=== PATIENT | female | born 1985 | race Caucasian/White ===

== ENCOUNTER 2023-04-28 18:16 | Emergency (ER) | payer OTHER, SELFPAY ==
--- NOTE | ~2023-04-28 | CT_ITS ---
EXAMINATION: CT abdomen pelvis wo IV con CLINICAL INFORMATION: Reason for Exam b/l flank pain rad abd. urinary frequency COMPARISON: No prior CT available for comparison. TECHNIQUE: Multidetector volumetric imaging was performed from the superior aspect of the liver through the pubic symphysis , noncontrast CT Sagittal and coronal reformatted images were obtained on the technologist's workstation. This CT examination was performed using dose optimization techniques as appropriate, variously including the following: *Automated exposure control *Adjustment of mA and/or kV according to patient size (this includes techniques or standardized protocols for targeted exams where dose is matched to indication/reason for exam; i.e. extremities or head) *Use of iterative reconstruction technique DLP: 624 mGy-cm FINDINGS: LOWER THORAX: Included lung bases are clear. HEPATOBILIARY: No focal hepatic lesions. No biliary ductal dilatation. GALLBLADDER: Gallbladder unremarkable. SPLEEN: Spleen is normal in size. PANCREAS: No focal mass or ductal dilatation. STOMACH AND GASTROINTESTINAL TRACT: Small sliding hiatal hernia, Stomach is grossly unremarkable. There is no bowel distention or thickening. No CT evidence of appendicitis. ADRENALS: No adrenal nodules. KIDNEYS/URETERS: There are bilateral multiple tiny 1 mm nonobstructing kidney stones. Approximately 3-4 stones on each side, No CT evidence of renal obstruction or hydronephrosis on either side. URINARY BLADDER: Partially decompressed. PELVIC VISCERA: There are bilateral tubal ligation devices in place. Otherwise unremarkable. PERITONEUM: No free air or fluid. LYMPH NODES: No lymphadenopathy. VASCULAR:Abdominal aorta normal in size, no aneurysm found. BONES, ABDOMINAL WALL AND SOFT TISSUES: Age-appropriate changes of the spine and skeletal system, no destructive osteolytic or osteosclerotic bone lesion found CT/CT abdomen pelvis wo IV con IMPRESSION: * No CT evidence of acute intra-abdominal process to explain patient's pain symptoms. * There are bilateral tiny 1 mm nonobstructing kidney stones, no CT evidence of renal obstruction or hydronephrosis. * Bilateral tubal ligation devices in place. * Small sliding hiatal hernia.
[2023-04-28 18:38] VITALS: BP 150/101; PULSE 104; RESP 16; TEMP 36.6; O2SAT 100; BMI 34.1
--- NOTE | 2023-04-28 18:39 | ED.ABDPAIN ---
HPI - Abdominal Pain General Chief Complaint: Abdominal Pain Stated Complaint: ?kidney stone Time Seen by Provider: 04/28/23 19:02 Source: patient Mode of arrival: ambulatory Limitations: no limitations History of Present Illness HPI narrative: Patient is a 37-year-old female presents emergency department for evaluation of flank pain. She risk reports 4 days ago with onset of bilateral flank pain. Today it is radiating to the right lower quadrant / suprapubic region. She has been experiencing urinary frequency and dysuria. Has associated nausea but no vomiting. Reports that this does feel consistent with prior episodes of kidney stones, she has not had problematic kidney stones in at least 11 years, in the past she has required lithotripsy and stenting. She denies fevers, chills, chest pain, shortness of breath, upper abdominal pain, constipation, diarrhea, headache media, melena, urinary retention, numbness or tingling of the extremities, weakness. Denies possibility of , currently finishing her menstrual cycle. Related Data Allergies Allergy/AdvReac Type Severity Reaction Status Date / Time No Known Allergies Allergy Verified 04/28/23 18:41 Review of Systems Review of Systems Yes all other systems are reviewed and are negative [facility] Past Medical History Attestation statement: The following information was validated with the patient. Source: old records reviewed Social History Social History Alcohol intake: current Smoked in Last 30 Days: No Use of substances other than those prescribed or required for medical reasons: No Advance Directives: No Physical Exam ED Vital Signs: Vital Signs - 24 hr 04/28/23 18:38 04/28/23 21:14 Temperature 97.8 F Pulse Rate 104 H 75 Respiratory Rate 16 17 Blood Pressure 150/101 H 111/64 Pulse Oximetry 100 97 Oxygen Delivery Method Room Air Room Air BMI result Body Mass Index 34.1 Appearance: Alert.?Oriented to person, place and time. No acute distress.?Normal affect. Eyes: Pupils equal, round and reactive to light.? ENT: Pharynx normal.?? Neck: Normal inspection.? Neck supple.?? CVS: Heart sounds normal. Normal heart rate and rhythm.? Pulses normal.?? Respiratory: No respiratory distress.? Lung sounds clear to auscultation bilaterally?? Abdomen: Soft With suprapubic tenderness. No rebound tenderness. No rigidity. No guarding. No distention. Bilateral CVA tenderness. Normoactive bowel sounds. Skin: Skin warm and dry.? Normal skin color.? ?? Extremities: No lower extremity edema.? Neuro: Moves all extremities spontaneously. Sensation intact bilaterally. Ambulates with normal steady gait. Course Course Course Narrative: RME: 37yo F w/PMHx renal stones c/o bilateral back/flank pain radiating to pelvic region, worse on R w/urinary frequency x 4 days. +nausea. denies fever, chills, vomiting +B/L CVAT, abdomen soft & nontender Labs, UA ordered Full HPI, ROS and PE to be performed by primary ED provider. Reevaluation(s) Reevaluation #1: CT revealing bilateral tiny 1 mm nonobstructing kidney stones no hydronephrosis, no evidence of appendicitis, no evidence of acute intra-abdominal process to explain symptoms. I reviewed these findings with patient, suspect that her pain may be secondary to her menstrual cycle, we reviewed alternative etiology, less likely PID, denies concerns for sexually transmitted infections, ovarian torsion. There is outpatient follow-up with primary care provider for persistent symptoms. Discussed worrisome signs and symptoms that would warrant re-evaluation in the emergency department. All questions answered. Stable for discharge. Time: 21:50 Medical Decision Making Medical Decision Making MDM Narrative: patient is a 37-year-old female with past medical history of with calculi presenting to emergency department for evaluation of flank pain radiating into the abdomen and nausea as per HPI. At the time my examination she is overall well-appearing, nontoxic, afebrile. She is tolerating oral intake prior to arrival by her account. She has bilateral CVA tenderness upon examination, suprapubic tenderness upon exam. Abdominal examination reveals no rigidity or guarding, no rebound tenderness. Will obtain CBC to evaluate for leukocytosis/ anemia, CMP and lipase to evaluate for abnormal electrolytes /abnormal renal function/ abnormal hepatic/biliary function, HCG, CT AP and Urinalysis. patient received 1 L normal saline IV fluid, Zofran IV for nausea, Toradol IV for pain. Plan to re-evaluate Differential Diagnosis Differential Diagnoses: The differential diagnosis associated with the presentation includes ( Ureteral calculi, obstructive calculi, hydronephrosis, pyelonephritis, urinary tract infection. Less likely ovarian torsion, ectopic , appendicitis, colitis, diverticulitis. ) Admission/Observation Consideration of admission/observation: Escalation of care including admission/observation considered Lab Data MDM Lab Attestation statement: I reviewed the patient's lab results. CBC is without leukocytosis or anemia. CMP is unremarkable. Lipase within normal limits. Urinalysis is without evidence of infection. HCG is negative. 04/28/23 19:06 04/28/23 19:06 Labs: Lab Results 04/28/23 04/28/23 Range/Units 19:06 19:24 WBC 10.1 (4.8-10.8) X10*3/uL RBC 4.43 (4.20-5.50) X10*6/uL Hgb 13.8 (12.0-16.0) g/dl Hct 41.4 (37.0-47.0) % MCV 93.5 (80.0-98.0) fL MCH 31.2 (27.0-33.0) pg MCHC 33.3 (31.0-35.0) g/dl RDW 12.5 (11.0-16.0) % Plt Count 395 (160-400) X10*3/uL MPV 8.5 L (9.4-12.3) fL Immature Gran % (Auto) 0.2 (0.0-0.4) % Neut % (Auto) 55.8 (45-73) % Lymph % (Auto) 33.7 (20-40) % [place] % (Auto) 4.7 (2-11) % Eos % (Auto) 5.0 H (0-4) % Baso % (Auto) 0.6 (0-2) % Lymph # (Auto) 3.4 (1.2-4.9) X10*3/uL [place] # (Auto) 0.5 (0.1-1.2) X10*3/uL Eos # (Auto) 0.5 H (0.0-0.4) X10*3/uL Baso # (Auto) 0.1 (0.0-0.2) X10*3/uL Abs Immat Gran (auto) 0.02 (0.00-0.03) X10*3/uL Absolute Neuts (auto) 5.6 (2.0-8.3) x10*3/uL Absolute Nucleated RBC 0.000 (0.0-0.012) X10*3/uL Nucleated RBC % (auto) 0.0 (0.0-0.2) /100WBC Sodium 140 (135-145) mmol/L Potassium 4.1 (3.3-5.1) mmol/L Chloride 107 (96-108) mmol/L Carbon Dioxide 25 (22-29) mmol/L Anion Gap 12 (12-20) BUN 9 (9-16) mg/dL Creatinine 0.86 (0.5-1.4) mg/dL Estim Creat Clear Calc 77.3 Estimated GFR > 60 Random Glucose 88 (60-115) mg/dL Calcium 9.4 (8.4-10.2) mg/dL Magnesium 1.9 (1.6-2.6) mg/dL Total Bilirubin 0.2 (0.0-1.0) mg/dL Direct Bilirubin < 0.2 (0.0-0.5) mg/dL AST 17 (5-31) U/L ALT 15 (0-31) U/L Alkaline Phosphatase 101 (39-117) U/L Total Protein 7.7 (6.5-8.0) g/dL Albumin 4.3 (3.5-5.0) g/dL Lipase 34 (8-78) U/L Urine Color Yellow Urine Appearance Clear Urine pH 5.5 (5.0-9.0) Ur Specific [place] <= 1.005 (1.005-1.025) Urine Protein Negative (Neg-Trace) mg/dL Urine Glucose (UA) Negative (Negative) mg/dL Urine Ketones Negative (Negative) mg/dL Urine Blood Negative (Negative) Urine Nitrite Negative (Negative) Ur Leukocyte Esterase Negative (Negative) Urine Test NEGATIVE (NEGATIVE) Independent Interpretation I performed an independent interpretation of an: CT Scan Radiology Impression Discussion of test interpretation with radiology: I have reviewed the radiologist's reading. Radiologist Impression: CT/CT abdomen pelvis wo IV con IMPRESSION: * No CT evidence of acute intra-abdominal process to explain patient's pain symptoms. * There are bilateral tiny 1 mm nonobstructing kidney stones, no CT evidence of renal obstruction or hydronephrosis. * Bilateral tubal ligation devices in place. * Small sliding hiatal hernia. Independent Historian Clinical information obtained from an independent historian. History obtained from or confirmed by: Spouse ( Present at bedside who confirms history) Prescription Management I considered prescription management with: Pain Medication ( acetaminophen/ibuprofen) Medications Administered Discontinued Medications Generic Name Dose Route Start Last Admin Trade Name Jennifer PRN Reason Stop Dose Admin Sodium Chloride 1,000 mls @ 999 mls/hr 04/28/23 19:15 04/28/23 19:43 Ns IV 04/28/23 20:15 999 mls/hr .Q1H1M LUIS Administration Ketorolac Tromethamine 15 mg 04/28/23 19:02 04/28/23 19:45 Ketorolac Tromethamine 15 Mg/Ml Vial IVPUSH 04/28/23 19:03 15 mg ONCE ONE Administration Morphine Sulfate 4 mg 04/28/23 20:24 04/28/23 20:27 Morphine Sulfate 4 Mg/Ml Cartridge IVPUSH 04/28/23 20:25 4 mg ONCE ONE Administration Protocol Ondansetron HCl 4 mg 04/28/23 19:02 04/28/23 19:45 Ondansetron Hcl 4 Mg/2 Ml Vial IVPUSH 04/28/23 19:03 4 mg ONCE ONE Administration Discharge Plan Discharge Clinical Impression: Abdominal pain Patient Disposition: Home, Self-Care Instructions: Abdominal Pain (ED) Additional Instructions: You can take ibuprofen 200 mg, 3 tablets (600mg) every 6-8 hours as needed for pain, in addition to Tylenol 500 mg, 2 tablets (1,000mg) every 4-6 hours as needed for pain, but not to exceed 3 doses daily (3,000mg).? Follow up your primary care provider return back to emergency department any new or worsening symptoms or concerns Referrals: Physician,Dianna J [Primary Care Provider] -
[2023-04-28 19:10] LABS: MANUAL DIFF FLAG NO
[2023-04-28 19:11] LABS: Basophils Absolute Auto 0.1 X10*3/uL (0.0-0.2); Basophils Percent Auto 0.6 % (0-2); Eosinophils Absolute Auto 0.5 X10*3/uL (0.0-0.4); Hematocrit 41.4 % (37.0-47.0); Hemoglobin 13.8 g/dl (12.0-16.0); Imm Gran Abs Auto 0.02 X10*3/uL (0.00-0.03); Imm Gran Pct Auto 0.2 % (0.0-0.4); Lymphocytes Absolute Auto 3.4 X10*3/uL (1.2-4.9); Lymphocytes Percent Auto 33.7 % (20-40); Mean Corpuscular HGB Conc 33.3 g/dl (31.0-35.0); Mean Corpuscular Hemoglobin 31.2 pg (27.0-33.0); Mean Corpuscular Volume 93.5 fL (80.0-98.0); Mean Platelet Volume 8.5 fL (9.4-12.3); Monocytes Absolute Auto 0.5 X10*3/uL (0.1-1.2); Monocytes Percent Auto 4.7 % (2-11); Neutrophils Absolute Auto 5.6 x10*3/uL (2.0-8.3); Neutrophils Percent Auto 55.8 % (45-73); Platelet Count 395 X10*3/uL (160-400); Red Blood Count 4.43 X10*6/uL (4.20-5.50); Red Cell Distribution Width 12.5 % (11.0-16.0); White Blood Count 10.1 X10*3/uL (4.8-10.8)
[2023-04-28 19:27] LABS: Alanine Aminotransferase 15 U/L (0-31); Albumin Level 4.3 g/dL (3.5-5.0); Alkaline Phosphatase 101 U/L (39-117); Anion Gap 12 (12-20); Aspartate Amino Transferase 17 U/L (5-31); Bilirubin Direct < 0.2 mg/dL (0.0-0.5); Bilirubin Total 0.2 mg/dL (0.0-1.0); Blood Urea Nitrogen 9 mg/dL (9-16); Calcium 9.4 mg/dL (8.4-10.2); Carbon Dioxide 25 mmol/L (22-29); Chloride 107 mmol/L (96-108); Creatinine Clr Calc Pharmacy 77.3; Estimated Glomerular Filt Rate > 60; Glucose Random 88 mg/dL (60-115); Lipase 34 U/L (8-78); Magnesium 1.9 mg/dL (1.6-2.6); Potassium 4.1 mmol/L (3.3-5.1); Sodium 140 mmol/L (135-145); Total Protein 7.7 g/dL (6.5-8.0)
[2023-04-28 19:39] LABS: Appearance Urine Clear; Color Urine Yellow; Glucose Urine UA Negative (Negative); Leukocyte Esterase Urine Negative (Negative); Nitrite Urine Negative (Negative); PH 5.5 (5.0-9.0); Specific Gravity - Urine <= 1.005 (1.005-1.025); Urine Blood Negative (Negative); Urine Ketones Negative (Negative); Urine Protein Negative (Neg-Trace)
[2023-04-28 19:40] LABS: UPreg QC Valid YES; Urine Pregnancy NEGATIVE (NEGATIVE)
[2023-04-28] MEDS: 0.9 % Sodium Chloride 1,000 ML 999 ML IV (19:43)
[2023-04-28] MEDS: ondansetron HCL 4 MG/2 ML VIAL IVPUSH (19:45)
[2023-04-28] MEDS: Ketorolac Tromethamine 15 MG/ML VIAL IVPUSH (19:45)
[2023-04-28] MEDS: Morphine Sulfate 4 MG/ML CARTRIDGE IVPUSH (20:27)
[2023-04-28 21:14] VITALS: BP 111/64; PULSE 75; RESP 17; O2SAT 97
--- NOTE | 2023-04-28 22:06 | PC.NURSE ---
IV removed, vitals taken, Reviewed discharge instructions with pt. pt verbalized understanding. no sob or chest pain. no sign of distress.
== END 2023-04-28 22:07 | disposition home or self-care (01) ==
PROVIDERS: Physician Assistant; Emergency Provider Emergency Medicine
DX: R30.0 Dysuria (principal); R10.31 Right lower quadrant pain; R35.0 Frequency of micturition; R11.0 Nausea; Z79.899 Other long term (current) drug therapy
CPT/HCPCS: 36415; 74176; 80048; 80076; 81003; 81025; 83690; 83735; 85025; 96361; 96374; 96375; 99284; 99285; J1885; J2270; J2405